=== PATIENT | female | born 1975 | race Two or more races ===

== ENCOUNTER 2016-12-31 11:21 | Inpatient (IN) | payer MEDICAID, OTHER ==
[~2016-12-31] VITALS: Ht 154.9 cm; Wt 76.2 kg
--- NOTE | 2016-12-31 11:25 | NUR ---
AAOX3, C/O MIDSTERNAL CP "IT FELT LIKE PINS AND NEEDLES" X THIS MORNING. SKIN IS WARM AND DRY. RESP IS EVEN AND UNLABORED WITH NAD NOTED. PLACED ON MONITOR. WILL CONTINUOUSLY MONITOR THE PATIENT AWAITING MD FOR EVAL.
[2016-12-31 11:54] LABS: BASOPHILS % (AUTO) 0.5 % (0.0-2.0); EOSINOPHILS # (AUTO) 0.2 /CMM (0.0-0.7); EOSINOPHILS % (AUTO) 3.5 % (0.0-6.0); HEMATOCRIT 43 % (33-45); HEMOGLOBIN 14.8 g/dL (11.5-14.8); LYMPHOCYTES # (AUTO) 1.8 /CMM (0.8-4.8); LYMPHOCYTES % (AUTO) 29.1 % (20.0-44.0); MEAN CORPUSCULAR HEMOGLOBIN 29 PG (26.0-33.0); MEAN CORPUSCULAR HGB CONC 34 g/dl (31.0-36.0); MEAN CORPUSCULAR VOLUME 85 fL (82-100); MONOCYTES # (AUTO) 0.3 /CMM (0.1-1.30); MONOCYTES % (AUTO) 5.2 % (2.0-12.0); NEUTROPHILS # (AUTO) 3.8 /CMM (1.8-8.9); NEUTROPHILS % (AUTO) 61.7 % (43.0-81.0); PLATELET COUNT (AUTO) 257 /CMM (150-450); RDW COEFFICIENT OF VARIATION 12.2 (11.5-15.0); RED BLOOD CELL COUNT(AUTO) 5.09 MIL/uL (4.0-5.2); WHITE BLOOD COUNT (AUTO) 6.1 K/uL (4.3-11.0)
[2016-12-31] MEDS ORDERED: IV NS 0.9% 1,000 ML BAG IV ONE (12:00)
[2016-12-31 12:10] LABS: INR 1.04 (0.87-1.13); PROTHROMBIN TIME 10.8 SECS (9.5-12.7)
[2016-12-31 12:14] LABS: TROPONIN I < 0.017 ng/mL (0.00-0.056)
[2016-12-31] MEDS ORDERED: ASPIRIN 325 MG TABLET PO ONE (12:30)
[2016-12-31 12:45] LABS: CALCIUM, SERUM 8.6 mg/dL (8.5-10.1); CARBON DIOXIDE 24 mmol/L (21-32); CHLORIDE 105 mmol/L (98-107); CREATININE 0.7 mg/dL (0.6-1.3); GLUCOSE 102 mg/dL (74-106); POTASSIUM 3.5 mmol/L (3.5-5.1); SODIUM SERUM 139 mmol/L (136-145); UREA NITROGEN, BLOOD 11 mg/dL (7-18)
[2016-12-31] MEDS ORDERED: ASPIRIN 325 MG TABLET ONE ×2 (13:14→13:39)
[2016-12-31] MEDS ORDERED: ZOLPIDEM TARTRATE 5 MG TABLET PO ONE (13:30)
[2016-12-31] MEDS ORDERED: ASPIRIN EC 325 MG TABLET.DR PO ONE (13:30)
[2016-12-31] MEDS ORDERED: PANTOPRAZOLE 40 MG TABLET.DR PO ONE ×2 (13:30→14:30)
--- NOTE | 2016-12-31 13:34 | NUR ---
PATIENT WILL BE ADMITTED INTO ROOM 314-2. TELE
[2016-12-31 14:00] VITALS: BP 123/72
--- NOTE | 2016-12-31 14:05 | NUR ---
PT BROUGHT ONTO FLOOR FROM ER. PT ALERT AND ORIENTED X4, ON RA, NO SOB OR SIGNS OF DISTRESS. PT STATES HER WHOLE BODY FEELS HEAVY LIKE SHE JUST WORKED OUT. IV ON RAC INTACT AND PATENT, SL. WILL CONTINUE TO MONITOR.
[2016-12-31 14:10] VITALS: BP 123/72
[2016-12-31] MEDS ORDERED: ZOLPIDEM TARTRATE 5 MG TABLET PO PRN (14:30)
[2016-12-31] MEDS: ATORVASTATIN 10 MG TABLET PO SCH ×2 (14:31→21:06)
[2016-12-31 16:00] VITALS: BP 126/71
--- NOTE | 2016-12-31 18:32 | NUR ---
PT IS SITTING IN BED, AWAKE AND ALERT, WITH SISTER AT BEDSIDE. IV ON LFA INTACT AND PATENT, SALINE LOCKED. PT HAS NO COMPLAINTS OF PAIN OR DISTRESS AT THIS TIME. BED IS IN LOW AND LOCKED POSITION, SIDE RAILS ARE UP X2, AND CALL LIGHT IS IN REACH. WILL ENDORSE TO INSTRUCTIONAL SUPERVISOR RN FOR CONTINUITY OF CARE.
--- NOTE | 2016-12-31 19:30 | NUR ---
INTERVENTION MANAGER OPENING NOTES: RECEIVED PT AND IS SITTING UP IN BED. PT IS A/OX 3. PT HAS IV ON LFA #22G AND IS PATENT AND INTACT. PT IS CURRENTLY S/L. NO COMPLAINTS OF PAIN AT THIS TIME. NO S/S OF DISTRESS. NO SOB. BED KEPT IN LOW, LOCKED POSITION, AND SIDE RAILS X 2 UP. CALL LIGHT WITHIN PT'S REACH. WILL CONTINUE TO MONITOR PT.
[2016-12-31 20:00] VITALS: BP 121/78
[2017-01-01] VITALS: BP 117/75
[2017-01-01 04:00] VITALS: BP 115/76
--- NOTE | 2017-01-01 06:03 | NUR ---
MS RN NOTES: PT KEPT NPO POST MIDNIGHT FOR LIPID PANEL.
--- NOTE | 2017-01-01 06:03 | NUR ---
PARTS ASSEMBLER NOTES: CONFIRMED WITH CHARGE NURSE IF PT STILL HAS TO REMAIN NPO FOR ECG. CONFIRMED THAT SHE DOES NOT HAVE TO BE NPO ANYMORE. ALSO, BLOOD WAS ALREADY DRAWN FOR LIPID PANEL.
--- NOTE | 2017-01-01 06:48 | NUR ---
TUBER OPERATOR CLOSING NOTES: ALL NEEDS WERE ATTENDED AND ANTICIPATED FOR. PT IS IN BED RESTING IN BED. PT IS A/OX 3. PT HAS IV ON LFA #22G AND IS PATENT AND INTACT. PT IS CURRENTLY S/L. NO COMPLAINTS OF PAIN AT THIS TIME. NO S/S OF DISTRESS. NO SOB. BED KEPT IN LOW, LOCKED POSITION, AND SIDE RAILS X 2 UP. CALL LIGHT WITHIN PT'S REACH. PT IS ON TELE MONITOR AND IS SR 73. WILL ENDORSE TO AM NURSE FOR LAUREN.
[2017-01-01 07:00] LABS: CHOLESTEROL 174 mg/dL (<200); HDL CHOLESTEROL 40 mg/dL (40-60); LDL 120 mg/dL (0-99); TRIGLYCERIDES 79 mg/dL (30-150)
--- NOTE | 2017-01-01 07:10 | NUR ---
RN NOTES PT IS IN BED, ALERT AND RESTING COMFORTABLY. PT ON ROOM AIR, NO SOB OR SIGNS OF DISTRESS. IV ON LFA INTACT AND PATENT, SL. SAFETY MEASURES ARE IN PLACE, AND CALL LIGHT IS IN REACH. WILL CONTINUE TO MONITOR.
[2017-01-01 08:00] VITALS: BP 122/80
[2017-01-01] MEDS ORDERED: OMEP20CA10 PO (08:15)
[2017-01-01] MEDS ORDERED: ALPR0.5T PO (08:15)
[2017-01-01 12:00] VITALS: BP 128/86
[2017-01-01] MEDS ORDERED: ALPRAZOLAM 0.25 MG TABLET PO ONE ×2 (12:30→16:00)
[2017-01-01] MEDS ORDERED: IOHEXOL-350 100 ML VIAL IV ONE (12:34)
[2017-01-01] MEDS ORDERED: IV NS 0.9% 250 ML IV ONE (12:34)
[2017-01-01 16:00] VITALS: BP 111/75
--- NOTE | 2017-01-01 18:03 | NUR ---
PT WAS DISCHARGED HOME IN STABLE CONDITION ACCOMPANIED BY HER SISTER. IVS AND ID BAND WERE REMOVED. DISCHARGE EDUCATION WAS GIVEN AND PT STATED SHE WOULD MAKE AN APPOINTMENT TO FOLLOW UP WITH THE [employer] MACHINE REPAIRER. DISCHARGE PAPERS AND BELONGINGS LIST WERE SIGNED. DR. EMERY WAS NOTIFIED.
== END 2017-01-01 18:00 | disposition home or self-care (01) | DRG 392 ==
LOC: ER 11:23 → TELE 13:38
PROVIDERS: ADMIT Internal Medicine; ATTEND Internal Medicine
DX: K21.9 Gastro-esophageal reflux disease without esophagitis (principal); E78.5 Hyperlipidemia, unspecified; Z82.49 Family history of ischemic heart disease and other diseases of the circulatory system; R03.0 Elevated blood-pressure reading, without diagnosis of hypertension
CPT/HCPCS: 36415; 71010-TC; 80048-TC; 80061-TC; 84484-TC; 85025-TC; 85730-TC; 87081-TC; 93307-TC; 93970-TC; A4606; J7030; J7050; Q9967; Z7610

== ENCOUNTER 2017-08-22 07:30 | Emergency (ER) | payer SELFPAY ==
[~2017-08-22] VITALS: Ht 154.9 cm; Wt 74.8 kg
[~2017-08-22 07:30] MED LIST: ALPR0.5T PO; OMEP20CA10 PO
--- NOTE | 2017-08-22 07:34 | NUR ---
ON/OFF DIARRHEA, COUGH, MONDAY, RT UPPER QUADRANT ABD PAIN RADIATES TO TO THE BACK. N/V
[2017-08-22] MEDS ORDERED: ONDANSETRON HCL/PF 4 MG/2 ML VIAL ONE (07:58)
[2017-08-22] MEDS ORDERED: ONDANSETRON HCL/PF 4 MG/2 ML VIAL IVP ONE (08:00)
[2017-08-22] MEDS ORDERED: IV NS 0.9% 1,000 ML BAG IV ONE (08:00)
--- NOTE | 2017-08-22 08:08 | NUR ---
LAC #20 IV ACCESS. BLOOD SAMPLE COLLECTED SENT TO LAB
[2017-08-22 08:10] LABS: BASOPHILS % (AUTO) 0.4 % (0.0-2.0); EOSINOPHILS % (AUTO) 3.7 % (0.0-6.0); HEMATOCRIT 43 % (33-45); HEMOGLOBIN 14.6 g/dL (11.5-14.8); LYMPHOCYTES # (AUTO) 1.8 /CMM (0.8-4.8); LYMPHOCYTES % (AUTO) 29.8 % (20.0-44.0); MEAN CORPUSCULAR HGB CONC 34 g/dl (31.0-36.0); MEAN CORPUSCULAR VOLUME 85 fL (82-100); MONOCYTES # (AUTO) 0.4 /CMM (0.1-1.30); MONOCYTES % (AUTO) 6.5 % (2.0-12.0); NEUTROPHILS # (AUTO) 3.7 /CMM (1.8-8.9); NEUTROPHILS % (AUTO) 59.6 % (43.0-81.0); PLATELET COUNT (AUTO) 229 /CMM (150-450); RDW COEFFICIENT OF VARIATION 12.8 (11.5-15.0); RED BLOOD CELL COUNT(AUTO) 4.99 MIL/uL (4.0-5.2); WHITE BLOOD COUNT (AUTO) 6.1 K/uL (4.3-11.0)
[2017-08-22 08:23] LABS: CALCIUM, SERUM 8.9 mg/dL (8.5-10.1); CREATININE 0.7 mg/dL (0.6-1.3); POTASSIUM 3.7 mmol/L (3.5-5.1)
[2017-08-22 08:29] LABS: ALBUMIN 3.6 g/dL (3.4-5.0); BILIRUBIN,DIRECT 0.2 mg/dL (0.0-0.2); BILIRUBIN,TOTAL 0.9 mg/dL (0.2-1.0); TOTAL PROTEIN, SERUM 7.2 g/dL (6.4-8.2)
[2017-08-22] MEDS ORDERED: METOCLOPRAMIDE HCL 10 MG/2 ML VIAL ONE (08:49)
[2017-08-22] MEDS ORDERED: METOCLOPRAMIDE HCL 10 MG/2 ML VIAL IV ONE (09:00)
[2017-08-22] MEDS ORDERED: diphenhydrAMINE HCL 50 MG/ML VIAL ONE (09:16)
[2017-08-22] MEDS ORDERED: diphenhydrAMINE HCL 50 MG/ML VIAL IV ONE (09:30)
--- NOTE | 2017-08-22 09:52 | NUR ---
IV removed. Catheter intact and site benign. Pressure and 4x4 applied to site. No bleeding noted.
--- NOTE | 2017-08-22 09:52 | NUR ---
Patient discharged to home in stable condition. Written and verbal after care instructions given. Patient verbalizes understanding of instruction.
[2017-08-22 09:53] VITALS: BP 140/85
== END 2017-08-22 09:54 | disposition home or self-care (01) ==
LOC: ER 07:31
DX: R11.2 Nausea with vomiting, unspecified (principal); R19.7 Diarrhea, unspecified; R10.84 Generalized abdominal pain; K21.9 Gastro-esophageal reflux disease without esophagitis; E78.00 Pure hypercholesterolemia, unspecified; Z88.0 Allergy status to penicillin; Z88.1 Allergy status to other antibiotic agents
CPT/HCPCS: 36415; 80048; 80076; 83690; 85025; 96361; 96374; 96375; 99284; A4606 ×2; J1200; J2405; J2765; J7030; Z7610

== ENCOUNTER 2019-03-02 19:17 | Emergency (ER) | payer SELFPAY ==
[~2019-03-02] VITALS: Ht 154.9 cm; Wt 90.7 kg
[~2019-03-02 19:17] MED LIST changes: -OMEP20CA10 PO; +OMEP20CA11 PO
--- NOTE | 2019-03-02 19:20 | NUR ---
PT BIBSELF C/O SOB X1 HOUR -CP, -COUGH, PT STATED PINS AND NEEDLES ON THE L ARM. PT IS AAOX4, NOT IN RESPIRATORY DISTRESS, HOOKED TO MONITOR, KEPT RESTED AND COMFORTABLE, WILL CONTINUE TO MONITOR.
--- NOTE | 2019-03-02 19:34 | NUR ---
AT BEDSIDE FOR EVAL.
--- NOTE | 2019-03-02 19:51 | NUR ---
IV LINE ESTABLISHED, BLOOD DRAWN AND SENT TO LAB.
[2019-03-02 19:54] LABS: BASOPHILS # (AUTO) 0.1 /CMM (0.0-0.2); BASOPHILS % (AUTO) 1.2 % (0.0-2.0); EOSINOPHILS % (AUTO) 2.1 % (0.0-6.0); HEMATOCRIT 41 % (33-45); HEMOGLOBIN 13.8 g/dL (11.5-14.8); LYMPHOCYTES # (AUTO) 2.5 /CMM (0.8-4.8); LYMPHOCYTES % (AUTO) 26.7 % (20.0-44.0); MEAN CORPUSCULAR HGB CONC 33 g/dl (31.0-36.0); MEAN CORPUSCULAR VOLUME 86 fL (82-100); MONOCYTES # (AUTO) 0.7 /CMM (0.1-1.30); MONOCYTES % (AUTO) 7.2 % (2.0-12.0); NEUTROPHILS # (AUTO) 5.9 /CMM (1.8-8.9); NEUTROPHILS % (AUTO) 62.8 % (43.0-81.0); PLATELET COUNT (AUTO) 230 /CMM (150-450); RED BLOOD CELL COUNT(AUTO) 4.82 MIL/uL (4.0-5.2); WHITE BLOOD COUNT (AUTO) 9.4 K/uL (4.3-11.0)
--- NOTE | 2019-03-02 19:54 | NUR ---
XRAY AT BEDSIDE
[2019-03-02 20:35] LABS: CALCIUM, SERUM 8.8 mg/dL (8.5-10.1); CARBON DIOXIDE 27 mmol/L (21-32); CHLORIDE 105 mmol/L (98-107); CREATININE 0.6 mg/dL (0.6-1.3); GLUCOSE 111 mg/dL (74-106); POTASSIUM 3.5 mmol/L (3.5-5.1); SODIUM SERUM 139 mmol/L (136-145); UREA NITROGEN, BLOOD 15 mg/dL (7-18)
[2019-03-02] MEDS ORDERED: IOHEXOL-350 100 ML VIAL IV ONE (23:32)
[2019-03-02] MEDS ORDERED: CT SWABBABLE VALVE TRANS SET 1 EA INFUS.SET MC ONE (23:32)
[2019-03-02] MEDS ORDERED: IV NS 0.9% 250 ML IV ONE (23:33)
--- NOTE | 2019-03-02 23:39 | NUR ---
PT IS WHEELED TO CT SCAN VIA [facility].
--- NOTE | 2019-03-02 23:52 | NUR ---
PT BROUGHT BACK FROM CT.
[2019-03-03 00:56] VITALS: BP 133/71
--- NOTE | 2019-03-03 00:56 | NUR ---
IV removed. Catheter intact and site benign. Pressure and 4x4 applied to site. No bleeding noted. Patient discharged to home in stable condition. Written and verbal after care instructions given. Patient verbalizes understanding of instruction.
== END 2019-03-03 00:58 | disposition home or self-care (01) ==
LOC: ER 19:19
DX: R06.02 Shortness of breath (principal); E78.5 Hyperlipidemia, unspecified; K21.9 Gastro-esophageal reflux disease without esophagitis; E78.00 Pure hypercholesterolemia, unspecified; F10.10 Alcohol abuse, uncomplicated; Y90.9 Presence of alcohol in blood, level not specified; Z98.890 Other specified postprocedural states; Z88.1 Allergy status to other antibiotic agents; Z79.899 Other long term (current) drug therapy
CPT/HCPCS: 36415; 71045; 71275; 80048; 83880; 84484; 85025; 85378; 93005; 99284; J7050; Q9967